=== PATIENT | female | born 1975 | race Two or more races ===

== ENCOUNTER → 2019-04-19 | Outpatient (CLI) | payer OTHER ==
[~2019-04-19] MED LIST: CONTRAST GIVEN. MC PRN; IOHEXOL 300 MG/ML 100ML VIAL. IV ONE
--- NOTE | 2019-04-19 10:21 | RAD ---
CT of the pelvis with contrast 04/19/2019 INDICATION: Inguinal adenopathy COMPARISON STUDY: None available TECHNIQUE: Multidetector CT imaging of the pelvis was performed following the administration of IV contrast. FINDINGS: Visualized bowel is grossly unremarkable. Intrauterine device appears to be present, resulting in artifact and limiting visualization. Limited evaluation of the uterus and adnexal structures otherwise grossly unremarkable. The bladder is grossly unremarkable. No free fluid is seen in the pelvis. No pneumoperitoneum the pelvis is identified. No abnormally enlarged lymph nodes are seen in the pelvis. In the bilateral internal region scattered small lymph nodes are noted. These are not pathologically enlarged by size criterion. Larger visualized nodes appear to retain fatty beckie. No morphologically abnormal lymph node is appreciated by CT. Mild subcutaneous stranding appears to be present in the upper abdomen which is nonspecific. No acute osseous abnormalities are identified. IMPRESSION: Scattered small inguinal lymph nodes without evidence of pathologically enlarged adenopathy. CT DOSING PQRS STATEMENT: One or more of the following individualized dose reduction techniques were utilized for this examination: 1. Automated exposure control 2. Adjustment of the mA and/or kV according to patient size 3. Use of iterative reconstruction technique Electronically signed by: Allen Luther MD (04/19/2019 10:18 AM) [id number]
== END | disposition home or self-care (01) ==
LOC: CT 08:59
PROVIDERS: ATTEND Physician Assistant Medical
DX: R59.0 Localized enlarged lymph nodes (principal)
CPT/HCPCS: 72193; Q9967